=== PATIENT | male | born 1955 | race Caucasian/White ===

== ENCOUNTER 2019-11-21 10:27 | Outpatient (CLI) | payer MEDICARE, SELFPAY ==
[2019-11-21 10:45] LABS: Basophils Absolute Auto 0.04 K/mm3 (0.00-0.10); Basophils Percent Auto 0.6 % (0.0-1.0); Eosinophils Absolute Auto 0.16 K/mm3 (0.02-0.50); Eosinophils Percent Auto 2.4 % (1.0-6.0); Hematocrit 45.1 % (40.0-54.0); Hemoglobin 14.7 g/dL (14.0-18.0); Immature Granulocyte Absolute 0.04 K/mm3 (0.00-0.00); Immature Granulocyte Percent A 0.6 % (0.0-0.0); Lymphocytes Absolute Auto 1.69 K/mm3 (1.10-4.50); Lymphocytes Percent Auto 25.1 % (18.0-42.0); Mean Corpuscular HGB Conc 32.6 g/dL (32.0-36.0); Mean Corpuscular Hemoglobin 31.8 pg (27.0-31.0); Mean Corpuscular Volume 97.6 fL (78.0-102.0); Mean Platelet Volume 9.4 fl (8.7-11.0); Monocytes Absolute Auto 0.39 K/mm3 (0.10-0.90); Monocytes Percent Auto 5.8 % (2.0-11.0); Neutrophils Absolute Auto 4.4 K/mm3 (1.7-7.2); Neutrophils Percent Auto 65.5 % (50.0-70.0); Platelet Count Result 317 K/mm3 (150-420); Red Blood Count 4.62 M/mm3 (4.70-6.10); Red Cell Distribution Width 12.7 % (11.6-14.4); White Blood Count 6.7 K/mm3 (4.8-10.8)
[2019-11-21 11:06] LABS: Hemoglobin A1C 5.5 % (<5.7)
[2019-11-21 11:52] LABS: Alanine Aminotransferase 26 U/L (16-63); Albumin Level 4.4 g/dL (3.4-5.0); Alkaline Phosphatase 157 U/L (46-116); Anion Gap 13.9 mmol/L (7-16); Aspartate Amino Transferase 21 U/L (15-37); Bilirubin,Total 0.4 mg/dL (0.00-1.00); Blood Urea Nitrogen 14 mg/dL (7-18); Calcium 10.8 mg/dL (8.5-10.1); Carbon Dioxide 29 mmol/L (21-32); Chloride 107 mmol/L (98-108); Estimated Glomerular Filt Rate 60; Free T4 Free Thyroxine 0.77 ng/dL (0.76-1.46); Glucose 101 mg/dL (70-99); Osmolality Calculated 300 mOsm/kg (285-295); Potassium 4.9 mmol/L (3.5-5.1); Sodium 145 mmol/L (136-145); Total Protein 7.6 g/dL (6.4-8.2)
[2019-11-25 00:30] LABS: Lithium 0.95 mmol/L (0.60-1.20)
== END 2019-11-21 10:28 | disposition home or self-care (01) ==
DX: F20.0 Paranoid schizophrenia (principal); Z79.899 Other long term (current) drug therapy
CPT/HCPCS: 36415; 80053; 80178; 83036; 84439; 84443; 85025

== ENCOUNTER 2020-08-10 12:51 | Inpatient (IN) | payer MEDICARE, MEDICAID, SELFPAY ==
[2020-08-10] VITALS (18 sets, daily range): BP systolic 113–138; BP diastolic 63–84; PULSE 54–74; RESP 15–20; TEMP 36.6; O2SAT 97–99
--- NOTE | ~2020-08-10 | CT_ITS ---
EXAMINATION: CT brain wo [facility] EXAM DATE: 08/10/2020 13:30 INDICATION: Slurred speech, weakness. TECHNIQUE: Spiral CT of the head was performed without contrast. Axial, coronal and sagittal images were reviewed. The dose-length product (DLP) for this examination was 681.00 mGy-cm. The exposure w as tailored according to patient size, and iterative reconstruction (ASIR) was used as additional dos e reduction technique. There is no prior study for comparison. FINDINGS: There is no acute intraparenchymal hemorrhage. No evidence of intraparenchymal brain mass lesion. No evidence of acute infarction. Please note that initial head CT has limited sensitivity f or small or acute infarctions. There is periventricular and subcortical hypodensity, nonspecific but probably related to small vessel ischemic disease. There is prominence of the sulci and ventricles related to cerebral atrophy. There is intracranial carotid arteriosclerosis. There are no extra-ax ial collections. There is no mass effect or midline shift. The orbits are unremarkable. Soft tissu e is unremarkable. The visualized sinuses and mastoid air cells are well aerated. IMPRESSION: 1. No acute intracranial findings. 2. Chronic age related findings. Reviewed, dictated and finalized at location A. OR QUALITY SUPERVISOR
--- NOTE | ~2020-08-10 | XR_ITS ---
EXAMINATION: XR chest 2V DATE: 08/10/2020 13:34 INDICATION: Slurred speech. Cerebrovascular accident. TECHNIQUE: Frontal and lateral views of the chest were obtained. COMPARISON: None. FINDINGS: There are mild airspace opacities in the lower lung zones. No pleural effusion or pneumotho rax. The heart size is normal. IMPRESSION: 1. Mild airspace opacities in the lower lung zones, consistent with atelectasis versus pneumonia. Reviewed, dictated and finalized at location B. GE HAND
--- NOTE | 2020-08-10 13:05 | ECG_ITS ---
Measurements Intervals [place] Rate: 55 P: 260 MO: 163 QRS: -27 QRSD: 146 T: 3 QT: 475 QTc: 457 Interpretive Statements SINUS BRADYCARDIA INTRAVENTRICULAR CONDUCTION DELAY DELAYED PRECORDIAL R/S TRANSITION MINIMAL Q WAVES- HIGH LATERAL LEADS BORDERLINE T WAVE ABNORMALITY- INFERIOR LEADS BASELINE WANDER- I, II, V2, V4-V5 BORDERLINE ECG Electronically Signed On 08-10-2020 14:51:00 SITE ACQUISITION SPECIALIST by Lobito Alcala D.O.
[2020-08-10 13:27] LABS: Basophils Absolute Auto 0.1 K/mm3 (0.0-0.1); Basophils Percent Auto 0.5 % (0.2-1.2); Eosinophils Absolute Auto 0.3 K/mm3 (0-0.3); Eosinophils Percent Auto 2.8 % (0-4.4); Hematocrit 44.2 % (42.0-52.0); Hemoglobin 14.9 g/dL (14.0-18.0); Immature Granulocyte Absolute 0.05 K/mm3 (0.00-0.031); Immature Granulocyte Percent A 0.5 % (0-0.5); Lymphocytes Absolute Auto 2.05 K/mm3 (0.9-3.2); Lymphocytes Percent Auto 21.9 % (18.3-44.2); Mean Corpuscular HGB Conc 33.7 g/dl (32-36); Mean Corpuscular Volume 95.1 fl (80-100); Mean Platelet Volume 9.6 fl (7.4-10.4); Monocytes Absolute Auto 0.6 K/mm3 (0.1-0.6); Monocytes Percent Auto 6.7 % (2.6-8.5); Neutrophils Absolute Auto 6.3 K/mm3 (1.3-6.7); Neutrophils Percent Auto 67.6 % (45.5-73.1); Platelet Count Result 367 k/mm3 (150-375); Red Blood Count 4.65 M/mm3 (4.6-6.20); Red Cell Distribution Width 12.7 % (11.5-14.5); White Blood Count 9.4 K/mm3 (4.5-10.0)
[2020-08-10 13:35] LABS: Prothrombin Time 13.6 Seconds (11.1-14.7)
[2020-08-10 13:36] LABS: Partial Thromboplastin Time 23.2 SECONDS (22.3-36.8)
[2020-08-10 13:39] LABS: Anion Gap 7 mmol/L (8-16); Blood Urea Nitrogen 18 mg/dL (9-20); Calcium 10.2 mg/dL (8.4-10.2); Carbon Dioxide 26 mmol/L (22-30); Chloride 103 mmol/L (98-107); Estimated CRCL calculation 62 ml/min; Estimated Glomerular Filt Rate > 60; Glucose 103 mg/dL (75-110); Potassium 4.1 mmol/L (3.4-5.0); Sodium 136 mmol/L (137-145)
[2020-08-10 13:50] LABS: Troponin I < 0.012 ng/mL (0.000-0.034)
[2020-08-10 13:51] LABS: Lithium 2.4 mmol/L (0.6-1.2)
[2020-08-10] MEDS: SODIUM CHLORIDE 0.9% IV 1,000 ML 999 ML IV CONT (13:59)
--- NOTE | 2020-08-10 14:02 | ED.WEAKNESS ---
HPI - Weakness General Chief complaint: Weakness Stated complaint: GENERALIZED WEAKNESS, CONFUSION Time Seen by Provider: 08/10/20 13:00 History of Present Illness HPI Narrative: Patient is a 65-year-old male who presents ER with weakness/confusion. Progressive over the last 3 days. Patient has history of schizophrenia and takes Haldol and lithium. No change in dosages. Sister reports patient is totally dependent on their care. They are hopeful to get him in a assisted living type situation in October but due to this recent changes they are concerned there may be something more serious occurring. No focal weakness of an arm or leg but patient has trouble getting himself up out of a chair due to weakness. Additionally patient has been choking when swallowing food and there is concerned that he may have some aspiration. No reports of shortness of breath or fever. No facial droop. Patient is slurring his words more than typical. Patient typically has EPS symptoms from his Haldol. Related Data Home Medications Medication Instructions Recorded Confirmed atenolol 50 mg PO DAILY 08/10/20 benztropine 2 mg PO DAILY 08/10/20 gemfibrozil 600 mg PO BID 08/10/20 haloperidol 5 mg PO DAILY 08/10/20 08/10/20 lithium carbonate 600 mg PO BID 08/10/20 omeprazole 20 mg PO DAILY 08/10/20 Allergies Allergy/AdvReac Type Severity Reaction Status Date / Time No Known Allergies Allergy Verified 08/10/20 16:55 Review of Systems Review of Systems: All systems reviewed & are unremarkable except as noted in HPI and below Constitutional: Constitutional: Denies chills, Denies fever(s) and Denies weakness ENT: Reports dysphagia, Denies nasal congestion and Denies sore throat Cardiovascular: Cardiovascular: Denies chest pain and Denies radiating jaw, neck or arm pain Respiratory: Respiratory: Reports cough, Denies dyspnea and Denies wheezing Neurologic: Reports confusion, Reports dizziness, Denies focal weakness, Denies numbness and Reports weakness PMFSH Past Medical History Medical History (Updated 08/10/20 @ 16:56 by Dimitrios Epps MD) Hyperlipidemia Hypertension Melanie Schizophrenia Surgical History Surgical History (Updated 08/10/20 @ 14:05 by Dimitrios Epps MD) No pertinent past surgical history Family History Family History (Updated 08/10/20 @ 16:52 by Marietta Siu RN) Unknown Unknown family medical history Social History Social History (Updated 08/10/20 @ 14:05 by Dimitrios Epps MD) Smoking status: Former smoker Exam Narrative: Exam Narrative: GENERAL: Well-appearing, well-nourished, and in no acute distress. HEAD: Normocephalic, atraumatic. EYES: PERRL and EOMI. ENT: Poor dentition. Moist mucous membranes. CHEST: Clear to auscultation. No respiratory distress. HEART: Bradycardic and regular. Normal peripheral pulses. ABDOMEN: Soft, nontender, nondistended. EXTREMITIES: Normal range of motion. Trace edema. SKIN: Warm, dry, no rash. NEURO: Slurred speech, cranial nerves II through XII intact, no upper or lower extremity drift. Alert and oriented x3. PSYCH: Normal mood and affect. Course Course Emergency Course: Admit to hospitalist service for hydration and further evaluation of lithium toxicity. Should be able to be managed with conservative care. Vital Signs Vital signs: Vital Signs Temperature 97.8 F 08/10/20 12:59 Pulse Rate 55 L 08/10/20 12:59 Respiratory Rate 18 08/10/20 12:59 Blood Pressure 130/81 08/10/20 12:59 Pulse Oximetry 97 08/10/20 12:59 Temperature 97.8 F 08/10/20 12:59 Pulse Rate 56 L 08/10/20 15:06 Respiratory Rate 15 08/10/20 15:06 Blood Pressure 118/78 08/10/20 15:06 Pulse Oximetry 98 08/10/20 15:06 MDM - Weakness Lab Data Result diagrams: 08/10/20 13:22 08/10/20 13:22 Labs: Lab Results 08/10/20 08/10/20 08/10/20 Range/Units 13:22 13:22 13:22 WBC 9.4 (4.5-10.0) K/mm3 R
--- NOTE | 2020-08-10 16:41 | ADMGEN ---
This patient, Junior Ramires, was admitted to 2 Medical Room 255-01. Patient/family oriented to hospital policies and general routines including ID bracelet, bed and alarms, visiting hours, pain management, procedures, bathroom and other care routines, personal items, smoking policy, room service/diet, and visiting hours. Information on how to activate the Rapid Response Team has been discussed. Patient/Family are encouraged to report perceived risks to care and to ask questions if they do not understand what they are told or what they should do.
[2020-08-10] MEDS: SODIUM CHLORIDE 0.9% IV 1,000 ML 125 ML IV CONT ×2 (17:06→23:54)
[2020-08-10 21:28] LABS: Lithium 1.9 mmol/L (0.6-1.2)
--- NOTE | 2020-08-10 23:42 | PM.IMHP ---
H&P: HPI History of Present Illness Date/Time: 08/10/20 23:42 Chief Complaint: weakness Narrative: Junior Ramires is a 64 year old male WHO HAS A HISTORY OF BIPOLAR DISORDER AND HAS BEEN ON LITHIUM SINCE HE WAS ON LITHIUM FOr many years. The patient stated that he has not intentionally tried to take any extra doses of lithium. He stated over the years he may have taken 1 or 2 extra not realized it. But he does not recall taking more than normal. The patient came to the emergency room today with complaints of weakness and confusion. Been getting progressively worse over the last 3 days. He has not had any changes in his dosage of medication when I talked to him he was stuttering but he was able to answer questions without difficulty. The patient tells me that he lives with family members. He has no focal weakness. No facial droop. The patient does have EPS symptoms from his Haldol. The patient is very weak and his heart rates in the 40s. Patient's lithium level initially was 2.4 and poison control had been notified they requested that we do a repeat lithium level. It was then 1.9. The patient is still needing insistence rolling over in the bed. The patient stated he is usually up ambulating without difficulty and is able to care for himself normally. Head CT was read as no acute intracranial findings and chronic age-related findings. Chest x-ray was read as mild airspace opacities in the lower lung zones consistent with atelectasis versus pneumonia. The patient was started on IV fluids. And placed on medical surgical with tele he is being admitted to observation on the date of service of 08/10/2020. Review of Systems Review of Systems: All systems reviewed & are unremarkable except as noted in HPI and below Constitutional: Constitutional: Reports as per HPI and Reports no additional constitutional complaints Eyes: Eyes: Reports as per HPI and Reports no additional eye complaints ENT: Reports system reviewed and no additional complaints, except as documented and Reports Normal hearing present Cardiovascular: Cardiovascular: Reports no additional cardiovascular complaints Respiratory: Respiratory: Reports no additional respiratory complaints and Reports no additional respiratory complaints Gastrointestinal: Gastrointestinal: Reports as per HPI and Reports no additional gastrointestinal complaints Musculoskeletal: Musculoskeletal: Reports no additional musculoskeletal complaints Integumentary/Breasts: Skin/Breast: Reports system reviewed and no additional complaints, except as docu and Reports as per HPI Neurologic: Reports system reviewed and no additional complaints, except as documented, Reports as per HPI and Reports Normal hearing present Psychiatric: Psychiatric: Reports no additional psychiatric complaints and Reports as per HPI Endocrine: Endocrine: Reports no additional endocrine complaints Hematologic/Lymphatic: Hematologic/Lymphatic: Reports no additional hematologic/lymphatic complaints Allergic/Immunologic: Allergic/Immunologic: Reports no additional allergic/immunologic complaints [facility] Past Medical History Medical History (Updated 08/11/20 @ 00:13 by Denise Castellano NP) Combined pyramidal-extrapyramidal syndrome Hyperlipidemia Hypertension Melanie Schizophrenia Surgical History Surgical History (Updated 08/10/20 @ 23:50 by Denise Castellano NP) History of appendectomy Family History Family History (Updated 08/10/20 @ 23:54 by Denise Castellano NP) Father due to motor vehicle traffic accident Mother due to natural causes Social History Social History (Updated 08/11/20 @ 00:09 by Denise Castellano NP) Social History: the patient is single and has never been . the patient stated that he used to smoke in 1968 for a brief period of time then quit. He stated that he had a significant other for a long period time but no longer has her. He does occasionally have it m
[2020-08-11] VITALS (9 sets, daily range): BP systolic 120–126; BP diastolic 66–72; PULSE 44–67; RESP 16–20; TEMP 36.3–36.9; O2SAT 97–99
[2020-08-11 05:42] LABS: Basophils Absolute Auto 0.1 K/mm3 (0.0-0.1); Basophils Percent Auto 0.6 % (0.2-1.2); Eosinophils Absolute Auto 0.2 K/mm3 (0-0.3); Eosinophils Percent Auto 2.8 % (0-4.4); Hemoglobin 13.8 g/dL (14.0-18.0); Immature Granulocyte Absolute 0.04 K/mm3 (0.00-0.031); Immature Granulocyte Percent A 0.5 % (0-0.5); Lymphocytes Absolute Auto 1.92 K/mm3 (0.9-3.2); Lymphocytes Percent Auto 24.6 % (18.3-44.2); Mean Corpuscular HGB Conc 33.7 g/dl (32-36); Mean Corpuscular Hemoglobin 32.2 pg (26-34); Mean Corpuscular Volume 95.6 fl (80-100); Mean Platelet Volume 9.5 fl (7.4-10.4); Monocytes Absolute Auto 0.5 K/mm3 (0.1-0.6); Monocytes Percent Auto 5.9 % (2.6-8.5); Neutrophils Absolute Auto 5.1 K/mm3 (1.3-6.7); Neutrophils Percent Auto 65.6 % (45.5-73.1); Platelet Count Result 335 k/mm3 (150-375); Red Blood Count 4.29 M/mm3 (4.6-6.20); Red Cell Distribution Width 12.8 % (11.5-14.5); White Blood Count 7.8 K/mm3 (4.5-10.0)
[2020-08-11 06:00] LABS: Alanine Aminotransferase 23 U/L (4-50); Albumin Level 3.9 g/dL (3.5-5.1); Alkaline Phosphatase 145 U/L (38-126); Anion Gap 4 mmol/L (8-16); Aspartate Amino Transferase 23 U/L (17-59); Bilirubin,Total 0.5 mg/dL (0.2-1.3); Blood Urea Nitrogen 14 mg/dL (9-20); Calcium 10.1 mg/dL (8.4-10.2); Carbon Dioxide 25 mmol/L (22-30); Chloride 110 mmol/L (98-107); Estimated CRCL calculation 73 ml/min; Estimated Glomerular Filt Rate > 60; Glucose 101 mg/dL (75-110); Magnesium 2.3 mg/dL (1.6-2.3); Potassium 3.7 mmol/L (3.4-5.0); Sodium 139 mmol/L (137-145)
[2020-08-11 06:37] LABS: Lithium 1.6 mmol/L (0.6-1.2)
[2020-08-11] MEDS: SODIUM CHLORIDE 0.9% IV 1,000 ML 125 ML IV CONT ×3 (08:02→23:41)
--- NOTE | 2020-08-11 10:43 | PM.IMPN ---
Progress Note: A&P Assessment and Plan (1) [place] toxicity: Code(s): T56.891A - Toxic effect of other metals, accidental (unintentional), initial encounter Status: Acute Assessment and Plan: On arrival, lithium level was elevated at 2.4. His medications are sorted by his sister, however she notes it is possible that he could have taken extra doses of his medication. The patient reportedly told the previous provider that he has taken extra doses of his medication unknowingly, however he did not state this to me. No GI symptoms on presentation. [place] level has improved to 1.6. [place] is on hold I will plan to contact his psychiatrist, Grecthen Arambula, GREENHOUSE ASSISTANT to discuss findings. He will need outpatient follow up and likely will require medication adjustment. Continue IV fluids (2) Generalized weakness: Code(s): R53.1 - Weakness Status: Acute Assessment and Plan: Patient and his sister both report patient has become increasingly weak and having difficult getting out of bed. Sister reports they are pursuing assisted living placement. 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 He is a fall risk. Appreciate PT/OT evaluation. Care coordination following Plan to speak with psychiatrist as above to assess psychiatric medications and their role in patients symptoms. Check B12, folate, TSH Fall precautions in place Monitor clinically (3) Dysphagia: Code(s): R13.10 - Dysphagia, unspecified Status: Acute Assessment and Plan: Noted by ER staff to be choking on food. His sister, who is actually a speech pathologist, knows that he has had increased drooling and dysphagia. Continue current NPO diet Bedside swallow study has been ordered. Appreciate ST evaluation (4) Bradycardia: Code(s): R00.1 - Bradycardia, unspecified Status: Acute Assessment and Plan: Telemetry has been reviewed which shows bradycardia in the 45-60 range with occasional pauses. This may be related to lithium toxicity. He is also on atenolol, however this has been held. Monitor on telemetry Continue to hold atenolol Consider cardiology consultation if no improvement (5) Hypertension: Code(s): I10 - Essential (primary) hypertension Status: Chronic Assessment and Plan: Blood pressure evaluated and is stable at 113/70. Atenolol on hold as above Monitor BP daily Subjective Date/time seen: 08/11/20 10:43 Interval history: Date of service: 08/11/20 Junior Ramires is a 64 year old male with a history of schizophrenia on several antipsychotic medications with known history of extrapyramidal syndrome, HLD, and HTN who is seen in follow up for increased, progressive weakness and lithium toxicity. He is feeling well today. He has no complaints at this time. He is not really able to tell me why he came into the hospital and is not able to provide much information. He does answer all my questions appropriately but exhibits confusion. He denies confusion, headache, nausea, vomiting, fever, chills, dizziness, or lightheadedness. He does note that he has been feeling weak lately. He reports feeling hungry. He is unable to tell me if he could have potentially taken any extra doses of his medication. He reports he has not missed any doses of medication. He notes speech changes, saying that he will occasionally have stuttering, but then later states that that has been present for many years. I spoke with his sister via phone who states that his speech slowness and stuttering has been present for some time. She also states that he has slow movements, muscle rigidity and stiffness, and shuffling gait. Recently, he began exhibiting more drooling, dysphagia, and decreased appetite. He had become increasingly weak and was not able to get out of bed. She stat
[2020-08-11 13:20] LABS: Folic Acid 5.5 ng/mL (2.76->20)
--- NOTE | 2020-08-11 18:16 | PC.NURSE ---
On 08/11/20, the RN, Geneva Tabares, provided care and completed [facility] documentation on this patient. I have reviewed the RN's documentation and agree with the findings.
[2020-08-11] MEDS: HALOPERIDOL 5 MG TABLET PO (21:19)
[2020-08-12] VITALS (9 sets, daily range): BP systolic 135–147; BP diastolic 70–74; PULSE 59–90; RESP 18; TEMP 36.1–36.9; O2SAT 99–100
[2020-08-12 05:36] LABS: Hematocrit 39.8 % (42.0-52.0); Mean Corpuscular HGB Conc 32.7 g/dl (32-36); Mean Corpuscular Hemoglobin 31.2 pg (26-34); Mean Corpuscular Volume 95.4 fl (80-100); Mean Platelet Volume 9.3 fl (7.4-10.4); Platelet Count Result 329 k/mm3 (150-375); Red Blood Count 4.17 M/mm3 (4.6-6.20); Red Cell Distribution Width 12.7 % (11.5-14.5); White Blood Count 8.4 K/mm3 (4.5-10.0)
[2020-08-12 05:51] LABS: Alanine Aminotransferase 21 U/L (4-50); Albumin Level 3.8 g/dL (3.5-5.1); Alkaline Phosphatase 132 U/L (38-126); Anion Gap 4 mmol/L (8-16); Aspartate Amino Transferase 26 U/L (17-59); Bilirubin,Total 0.3 mg/dL (0.2-1.3); Blood Urea Nitrogen 9 mg/dL (9-20); Calcium 10.1 mg/dL (8.4-10.2); Carbon Dioxide 26 mmol/L (22-30); Chloride 113 mmol/L (98-107); Estimated CRCL calculation 81 ml/min; Estimated Glomerular Filt Rate > 60; Glucose 109 mg/dL (75-110); Potassium 3.7 mmol/L (3.4-5.0); Sodium 143 mmol/L (137-145)
[2020-08-12] MEDS: HALOPERIDOL 5 MG TABLET PO (08:05)
[2020-08-12] MEDS: PANTOPRAZOLE 40 MG TABLET PO (08:05)
[2020-08-12] MEDS: BENZTROPINE MESYLATE 1 MG TABLET 2 MG PO (08:05)
--- NOTE | 2020-08-12 15:16 | PM.IMPN ---
Progress Note: A&P Assessment and Plan (1) [place] toxicity: Code(s): T56.891A - Toxic effect of other metals, accidental (unintentional), initial encounter Status: Acute Assessment and Plan: On arrival, lithium level was elevated at 2.4. His medications are sorted by his sister, however she notes it is possible that he could have taken extra doses of his medication. The patient reportedly told the previous provider that he has taken extra doses of his medication unknowingly, however he did not state this to me. No GI symptoms on presentation. [place] level has improved to normal limits at 1.0. [place] is on hold. I spoke with his psychiatrist, Gretchen Arambula, TEJAL via phone on 08/11. She recommends holding lithium until outpatient follow up. He will schedule a virtual visit upon discharge. He will need closer monitoring and assistance with managing his medication to ensure he is not taking extra medication IV fluids discontinued (2) Generalized weakness: Code(s): R53.1 - Weakness Status: Acute Assessment and Plan: Patient and his sister both report patient has become increasingly weak and having difficult getting out of bed. Sister reports they are pursuing assisted living placement. 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 He is a fall risk. B12, folate, and TSH within normal limits. Appreciate PT/OT evaluation. Care coordination following; planning for home health upon discharge Fall precautions in place Monitor clinically (3) Dysphagia: Code(s): R13.10 - Dysphagia, unspecified Status: Acute Assessment and Plan: Noted by ER staff to be choking on food. His sister, who is actually a speech pathologist, noted that he has had increased drooling and dysphagia. Bedside swallow study performed 08/11, recommended minced and moist diet with thin liquids Aspiration precautions in place Continue speech therapy exercises to promote laryngeal elevation (4) Bradycardia: Code(s): R00.1 - Bradycardia, unspecified Status: Acute Assessment and Plan: Telemetry has been reviewed which showed bradycardia in the 45-60 range with occasional pauses. This may be related to lithium toxicity. He is also on atenolol, however this has been held. Improved today with heart rate typically in the 70s, still having occasional pauses, however less frequent. Monitor on telemetry Continue to hold atenolol. This will be likely discontinued upon discharge. I am unsure why he is on atenolol as he has no medical history indicating need for rate controlling medication, may be for HTN, however BP has been well controlled. Consider cardiology consultation if no improvement (5) Hypertension: Code(s): I10 - Essential (primary) hypertension Status: Chronic Assessment and Plan: Blood pressure evaluated and has been generally very well controlled. Last BP 147/74. Atenolol on hold as above Monitor BP daily (6) Combined pyramidal-extrapyramidal syndrome: Code(s): G25.89 - Other specified extrapyramidal and movement disorders Status: Inactive Assessment and Plan: Per patient's psychiatrist, this is thought to be due to side effects from his antipsychotic medications. He was recently started on Ingrezza for his tardive dyskinesia symptoms, however he did not tolerate this medication very well and was discontinued about 2 weeks ago. Per his psychiatrist, she was concerned for true Parkinson's disease in light of his Parkinsonian symptoms, rather than as a medication side effect. Sister reports rigidity and shuffling gait. No resting tremor noted. He does have a bit of a flat affect. Neurology consultation was requested by his psychiatrist to assess for Parkinson's disease. Appreciate neurology input Will continue benztropine an
--- NOTE | 2020-08-12 15:34 | WPDNEURCNPN ---
Assessment and Plan Assessment and plan (1) Generalized weakness: Code(s): R53.1 - Weakness Status: Acute (2) Hyperlipidemia: Code(s): E78.5 - Hyperlipidemia, unspecified Status: Acute (3) Hypertension: Code(s): I10 - Essential (primary) hypertension Status: Chronic (4) [place] toxicity: Code(s): T56.891A - Toxic effect of other metals, accidental (unintentional), initial encounter Status: Acute Additional Plan ongoing history of bipolar disease admitted for the complaints of generalized weakness fairly normal routine lab except elevated lithium level at this stage is neurological examination is grossly nonfocal at this stage no further neurological intervention is necessary he can return to his place of residence Consult date: 08/12/20 Time Seen: 12:00 HPI: Junior Ramires is a 64 year old male admitted to the hospital for complaints of generalized weakness in addition to the history of underlying bipolar disorder for which he has been on lithium. Reportedly came to the emergency room with complaints of generalized weakness with increasing confusion over the last 72 hours and also without any focal weakness his initial lithium levels were documented as 2.4 for which the poison Control Center has suggested to repeat the lithium level. His CT scan in the emergency room was negative for the bleed, chest x-ray was compatible with possible atelectasis versus pneumonia he was started on the intravenous fluids and admitted for further care. Her lab revealed WBC 9.4 hemoglobin 14.9 platelet count 367 INR of 1.0, lytes normal and lithium level of 2.4 which are gradually coming down to 1.0 on 08/12, [place] above initial CT scan of the head negative he has remained afebrile with temp of 36.4? pulse of 72 and respiration 18 pulse ox 100 on room air and blood pressure now of 142/70 Review of Systems Review of Systems: All systems reviewed & are unremarkable except as noted in HPI and below PMFSH Past Medical History Medical History Combined pyramidal-extrapyramidal syndrome Hyperlipidemia Hypertension Melanie Schizophrenia Surgical History Surgical History History of appendectomy Family History Family History Father due to motor vehicle traffic accident Mother due to natural causes Social History Social History Social History: the patient is single and has never been . the patient stated that he used to smoke in 1968 for a brief period of time then quit. He stated that he had a significant other for a long period time but no longer has her. He does occasionally have it makes drink. He said that he lives with family and he has no children. He is a full code and does not have a durable power prosecuting attorney for healthcare. the patient stated that he use marijuana in the 60s. Smoking status: Former smoker Alcohol intake: never Substance use: never Substance use type: does not use Gender identity (if verbalized by the patient): Male Sexual Orientation (if Verbalized by the Patient): Straight or Heterosexual Spiritual care concerns: No Meds Home Medications and Allergies Home Medications Medication Instructions Recorded Confirmed Type atenolol 50 mg PO DAILY 08/10/20 08/10/20 History benztropine 2 mg PO DAILY 08/10/20 08/10/20 History gemfibrozil 600 mg PO BID 08/10/20 08/10/20 History haloperidol 5 mg PO DAILY 08/10/20 08/10/20 History lithium carbonate 600 mg PO BID 08/10/20 08/10/20 History omeprazole 20 mg PO DAILY 08/10/20 08/10/20 History Allergies Allergy/AdvReac Type Severity Reaction Status Date / Time No Known Allergies Allergy Verified 08/10/20 16:55 Vital Signs Vital Signs - 24 hr 08/11/20 16:00 08/11/20 20:00 08/11/20 21:
--- NOTE | 2020-08-12 19:00 | ECG_ITS ---
Measurements Intervals [place] Rate: 71 P: 91 MO: 201 QRS: -16 QRSD: 133 T: -12 QT: 364 QTc: 397 Interpretive Statements SINUS RHYTHM INTRAVENTRICULAR CONDUCTION DELAY VOLTAGE CRITERIA FOR LVH MINIMAL Q WAVES- HIGH LATERAL LEADS BORDERLINE T WAVE ABNORMALITY- ANT/INF LEADS BASELINE ARTIFACT- I, II, AVR, V2-V3 BORDERLINE ECG Electronically Signed On 08-13-2020 7:13:32 DANDY TENDER by Lobito Alcala D.O.
[2020-08-13] VITALS: PULSE 80
[2020-08-13 04:00] VITALS: PULSE 84
[2020-08-13 05:37] LABS: Anion Gap 3 mmol/L (8-16); Blood Urea Nitrogen 7 mg/dL (9-20); Calcium 9.7 mg/dL (8.4-10.2); Carbon Dioxide 27 mmol/L (22-30); Chloride 111 mmol/L (98-107); Estimated CRCL calculation 73 ml/min; Estimated Glomerular Filt Rate > 60; Glucose 105 mg/dL (75-110); Potassium 3.3 mmol/L (3.4-5.0); Sodium 141 mmol/L (137-145)
[2020-08-13 06:00] VITALS: BP 153/83; PULSE 72; RESP 16; TEMP 36.6; O2SAT 97
[2020-08-13 08:00] VITALS: PULSE 72
[2020-08-13] MEDS: PANTOPRAZOLE 40 MG TABLET PO (09:31)
[2020-08-13] MEDS: amLODIPine BESYLATE 5 MG TABLET PO (09:31)
[2020-08-13] MEDS: HALOPERIDOL 5 MG TABLET PO (09:31)
[2020-08-13] MEDS: BENZTROPINE MESYLATE 1 MG TABLET 2 MG PO (09:31)
[2020-08-13 11:45] VITALS: BP 151/76
[2020-08-13 12:00] VITALS: PULSE 88
--- NOTE | 2020-08-13 12:01 | PM.DS ---
DS: Admitting Diagnosis Admitting Diagnosis Admitting Diagnosis: generalized weakness DS: Discharge Diagnosis Discharge Diagnosis (1) [place] toxicity: Code(s): T56.891A - Toxic effect of other metals, accidental (unintentional), initial encounter Status: Acute Assessment and Plan: On arrival, lithium level was elevated at 2.4. His medications are sorted by his sister, however she notes it is possible that he could have taken extra doses of his medication. The patient reportedly told the previous provider that he has taken extra doses of his medication unknowingly, however he did not state this to me. No GI symptoms on presentation. [place] level has improved to normal limits at 1.0. I spoke with his psychiatrist, Gretchen Arambula NP via phone on 08/11. She recommends holding lithium until outpatient follow up. He will schedule a virtual visit upon discharge. his lithium was held. I had a discussion with his sister who is his primary sports cartoonist via phone about closer monitoring with his medications to ensure that he is taking his medications appropriately. (2) Generalized weakness: Code(s): R53.1 - Weakness Status: Acute Assessment and Plan: Patient and his sister both report patient has become increasingly weak and having difficult getting out of bed. Sister reports they are pursuing assisted living placement. 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 He is a fall risk. B12, folate, and TSH within normal limits. he was evaluated by PT /OT and will continue therapy with home health until family can determine appropriate assisted living placement for him. Discussed fall precautions. (3) Dysphagia: Code(s): R13.10 - Dysphagia, unspecified Status: Acute Assessment and Plan: Noted by ER staff to be choking on food. His sister, who is actually a speech pathologist, noted that he has had increased drooling and dysphagia at home. Bedside swallow study performed and recommended minced and moist diet with thin liquids. Recommended that he continue with speech therapy exercises to promote laryngeal elevation. (4) Bradycardia: Code(s): R00.1 - Bradycardia, unspecified Status: Acute Assessment and Plan: Telemetry reviewed which showed bradycardia in the 45-60 range with occasional pauses on arrival. This may be related to lithium toxicity, however suspect this is more likely related to his atenolol. With holding atenolol, his heart rate improved to the 70s. He did still have occasional pauses 1-2 seconds. His atenolol was discontinued. He will need to follow-up with his PCP in 1 week for further evaluation. He will benefit from outpatient sleep study to rule out MAURO as a cause and I encouraged his sister to discuss this with his PCP. (5) Hypertension: Code(s): I10 - Essential (primary) hypertension Status: Chronic Assessment and Plan: Blood pressure evaluated and remained well controlled. he was transition to amlodipine 5 mg daily for BP control as his atenolol was discontinued. I recommended that he monitor his BP 3 4 times weekly and bring a list to his PCP for further evaluation. 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 He was recently started on Ingrezza for his tardive dyskinesia symptoms, however he did not tolerate this medication very well and was discontinued about 2 weeks ago. Per his psychiatrist, she was concerned for true Parkinson's disease in light of his Parkinsonian symptoms, rather than as a medication side effect. Sister reports rigidity and shuffling gait. No restin
[2020-08-13] MEDS: POTASSIUM CHLORIDE 20 MEQ PACKET (FOR LIQUID) PO (12:19)
== END 2020-08-13 13:35 | disposition home health service (06) | DRG 918 ==
LOC: ANHED 13:21 → ANH2MED 15:32
PROVIDERS: Family Medicine; Nurse Practitioner; Physician Assistant; Admitting Provider Internal Medicine; Emergency Provider Emergency Medicine; PCP Physician Assistant; Visit Provider Internal Medicine
DX: T56.891A Toxic effect of other metals, accidental (unintentional), initial encounter (principal); G25.89 Other specified extrapyramidal and movement disorders; R53.1 Weakness; R13.10 Dysphagia, unspecified; R00.1 Bradycardia, unspecified; I10 Essential (primary) hypertension; F31.9 Bipolar disorder, unspecified; F20.9 Schizophrenia, unspecified; E78.5 Hyperlipidemia, unspecified; Z79.899 Other long term (current) drug therapy; Z87.891 Personal history of nicotine dependence
CPT/HCPCS: 36415; 70450; 71046; 80048; 80053; 80178; 82607; 82746; 83735; 84443; 84484; 85025; 85027; 85610; 85730; 92526; 92610; 93005; 96360; 96361; 97110; 97116; 97161; 97165; 97530; 97535; 99285; A9270; G0378; J7030

== ENCOUNTER 2024-10-28 08:57 | Outpatient (CLI) | payer MEDICARE, MEDICAID, SELFPAY ==
--- NOTE | ~2024-10-28 | NM_ITS ---
EXAMINATION: NM parathyroid imaging w spect DATE: 10/28/2024 14:21 INDICATION: Disorder of parathyroid gland TECHNIQUE: 21 mCi Tc99m sestamibi (Cardiolite) was administered by intravenous route. Anterior images of the neck were obtained at 10 minutes and 3 hours. COMPARISON: None. FINDINGS/IMPRESSION: There is no focus of persistent activity in the area of the thyroid or mediastinum to suggest parathy roid adenoma. Reviewed, dictated and finalized at location A.
--- OUTSIDE RECORDS SUMMARY | 2024-10-28 09:41 | XMS_ITS | Data Portability ---
Author Organization [facility] [address] [place] [address] Care Team Providers Care Goodyear Welter Name Role Phone ZOLTAN HOUSTON Primary Care Provider Assessment Encounter Date Assessment Date Assessment LastModified by Organization Details LastModified Time 04/01/2024 04/01/2024 hypertension controlled dyslipidemia check labs GERD using conservative measures and doing fine schizophrenia follow up with Psychiatry get old records see me in 4 months [email or web address] Not available 04/21/2024 14:59:37 07/29/2024 07/29/2024 he has had a fall or 2 without injury I will get him set up with physical therapy evaluation. There are seeing for some resources to help him get in with the paratransit to help with getting the patient to office I think that is fine. I want to see him in 3 months CBC CMP lipid T3-T4 TSH prior to visit. Please obtain last colon screening test [email or web address] Not available 07/29/2024 12:12:29 Plan of Treatment Reminders Order Date Submit Date Provider Last Modified By Organization Details Last Modified Time Details Appointments ANY 15 2024 11:00A Omid Yan MD Not available Not available Not available Lab noninvasi ve colorecta l cancer DNA + occult blood screening , QL, stool 2024 025 [email or web address] (Cologuard Orders Only), [address], [address], [place], [address], 10/01/2024 22:08:46 CBC w/ auto diff 2024 025 [email or web address], [address], [place], [address], 08/27/2024 10:32:48 CMP, serum or plasma 2024 025 [facility], [address], [place], [address], 08/27/2024 10:32:07 lipid panel, serum 2024 025 [place] [facility], [address], [place], [address], 08/27/2024 10:33:00 TSH, serum or plasma 2024 025 [facility], [address], [place], [address], 08/27/2024 10:32:18 T3, free, serum or plasma 2024 025 [facility], [address], [place], [address], 08/27/2024 10:32:26 T4, free, serum 2024 025 [facility], [address], [place], [address], 08/27/2024 10:32:31 PSA, total, serum or plasma 2023 024 [email or web address] [facility], [address] [place] [address] [place], [facility] [address], [place], [address], 04/24/2024 11:24:23 lipid panel, serum 2023 024 [facility] [address], [facility] [address], [place], [address], 04/15/2024 09:40:22 CMP, serum or plasma 2023 024 [email or web address] [facility], [address], [address], [place], [address], 04/24/2024 11:24:23 CBC w/ auto diff 2023 024 [email or web address] [facility], [address], [address], [place], [address], 04/24/2024 11:24:23 PSA, serum or plasma 2020 021 MAYA [facility], [address], [address], [place], [address], 10/08/2020 13:10:34 CMP, serum or plasma 2020 021 MAYA [facility], [address] [facility] [address], [address], [place], [address], 10/08/2020 13:10:32 urinalysi s, complete 2020 021 MAYA [facility], [address] [facility] [address], [place], [address], 10/08/2020 13:10:33 HbA1c (hemoglob in A1c), blood 2020 021 MAYA [facility], [address] [facility] [address], [address], [place], [address], 10/08/2020 13:10:35 Referral physical therapist referral 2024 025 [facility], [address] [place], [address], 08/09/2024 16:30:25 Procedures None recorded. Surgeries None recorded. Imaging None recorded. Medication Orders amlodipin e 5 mg tablet 2020 021 INTERFACE [id number], [address], [place], [place], [id number], 08/24/2020 11:51:44 Patient TargetsNo targets recorded. Patient Instructions Encounter Date Encounter Id Patient Instructions Last Modified By Organization Details Last Modified Time 08/24/2020 [id number] sleep apnea: car e instructions jnanney Not available 08/24/2020 11:51:37 schizophrenia: care instructions jnanney Not available 08/24/2020 11:51:36 learning about high blood pressure jnanney Not available 08/24/2020 11:51:36 high cholesterol : care instructions jnanney Not available 08/24/2020 11:51:36 10/02/2020 [id number] frequent urination: care instructions jnanney Not available 10/02/2020 15:26:33 Come in for PSA and UA/UCX jnanney Not available 10/02/2020 15:26:32 10/07/2020 [id number] frequent urination: care instructions jnanney Not available 10/07/2020 10:56:41 Reason for Referral Physical Therapist Referral for Fall Referring Physician: Dar Yan, Internal Medicine, Encounter Date: 07/29/2024 Results Created Date Observation Date Name Description Value Unit Range Abnormal Flag Note LastModifiedBy Organization Detail LastModifiedTime 10/13/1910/12/2024 COLOG UARD cologuard result reportable Sample Could Not Be Proces sed n/a An empty colle ction kit was recei glory in the labor atory . The patie nt will be conta cted to initi ate a new sampl e colle ction . Not Available [facility] (Cologuard Orders Only) [address], [place], [address], 10/12/2024 02:36:49 10/08/1910/08/2020 CMP, serum or plasm a glucose 100 mg/dL 65-99 above high normal Not Available [facility] ([facility]) [address] [facility], [place], [address], 10/08/2020 13:10:32 10/08/19 21 10/08/2020 CMP, serum or plasm a BUN 17 mg/dL 8-27 Not Available [facility] ([facility]) [address] [place], [address], 10/08/2020 13:10:32 10/08/19 21 10/08/2020 CMP, serum or plasm a creatinine 0.89 mg/dL 0.76-1 .27 Not Available [facility] ([facility]) [address] [place], [address], 10/08/2020 13:10:32 10/08/19 21 10/08/2020 CMP, serum or plasm a eGFR if nonafricn AM 90 mL/mi n/1.7 3 >59 Not Available [facility] ([facility]) [address] [place], [address], 10/08/2020 13:10:32 10/08/19 21 10/08/2020 CMP, serum or plasm a eGFR if africn AM 104 mL/mi n/1.7 3 >59 Not Available [facility] ([facility]) [address] [place], [address], 10/08/2020 13:10:32 10/08/19 21 10/08/2020 CMP, serum or plasm a BUN/creatini ne ratio 19 10-24 Not Available [facility] ([facility]) [address] [place], [address], 10/08/2020 13:10:32 10/08/19 21 10/08/2020 CMP, serum or plasm a sodium 142 mmol/ L 134-14 4 Not Available [facility] ([facility]) [address] [place], [address], 10/08/2020 13:10:32 10/08/19 21 10/08/2020 CMP, serum or plasm a potassium 4.1 mmol/ L 3.5-5. 2 Not Available [facility] ([facility]) [address] [place], [address], 10/08/2020 13:10:32 10/08/19 21 10/08/2020 CMP, serum or plasm a chloride 103 mmol/ L 96-106 Not Available [facility] ([facility]) [address] [place], [address], 10/08/2020 13:10:32 10/08/19 21 10/08/2020 CMP, serum or plasm a carbon dioxide, total 24 mmol/ L 20-29 Not Available [facility] ([facility]) [address] [facility], [place], [address], 10/08/2020 13:10:32 10/08/19 21 10/08/2020 CMP, serum or plasm a calcium 10.6 mg/dL 8.6-10 .2 above high normal Not Available [facility] ([facility]) [address] [place], [address], 10/08/2020 13:10:32 10/08/19 21 10/08/2020 CMP, serum or plasm a protein, total 7.3 g/dL 6.0-8. 5 Not Available [facility] ([facility]) [address] [place], [address], 10/08/2020 13:10:32 10/08/19 21 10/08/2020 CMP, serum or plasm a albumin 4.8 g/dL 3.8-4. 8 Not Available [facility] ([facility]) [address] [place], [address], 10/08/2020 13:10:32 10/08/19 21 10/08/2020 CMP, serum or plasm a globulin, total 2.5 g/dL 1.5-4. 5 Not Available [facility] ([facility]) [address] [place], [address], 10/08/2020 13:10:32 10/08/19 21 10/08/2020 CMP, serum or plasm a A/G ratio 1.9 1.2-2. 2 Not Available [facility] ([facility]) [address] [place], [address], 10/08/2020 13:10:32 10/08/19 21 10/08/2020 CMP, serum or plasm a bilirubin, total 0.3 mg/dL 0.0-1. 2 Not Available [facility] ([facility]) [address] [place], [address], 10/08/2020 13:10:32 10/08/19 21 10/08/2020 CMP, serum or plasm a alkaline phosphatase 128 IU/L 39-117 above high normal Not Available [facility] ([facility]) [address] [place], [address], 10/08/2020 13:10:32 10/08/19 21 10/08/2020 CMP, serum or plasm a AST (SGOT) 37 IU/L 0-40 Not Available [facility] ([facility]) [address] [place], [address], 10/08/2020 13:10:32 10/08/19 21 10/08/2020 CMP, serum or plasm a ALT (SGPT) 42 IU/L 0-44 Not Available [facility] ([facility]) [address] [place], [address], 10/08/2020 13:10:32 10/08/1910/08/2020 urina lysis , compl ete specific gravity 1.010 1.005- 1.030 Not Available [facility] ([facility]) [address] [place], [address], 10/08/2020 13:10:33 10/08/19 21 10/08/2020 urina lysis , compl ete pH 6.0 5.0-7. 5 Not Available [facility] ([facility]) [address] [place], [address], 10/08/2020 13:10:33 10/08/19 21 10/08/2020 urina lysis , compl ete urine-color Yellow yellow Not Available [facility] ([facility]) [address] [facility], [place], [address], 10/08/2020 13:10:33 10/08/19 21 10/08/2020 urina lysis , compl ete appearance Clear clear Not Available [facility] ([facility]) [address] [facility], [place], [address], 10/08/2020 13:10:33 10/08/19 21 10/08/2020 urina lysis , compl ete WBC esterase Negati ve negati ve Not Available [facility] ([facility]) [address] [place], [address], 10/08/2020 13:10:33 10/08/19 21 10/08/2020 urina lysis , compl ete protein Negati ve negati ve/tra ce Not Available [facility] ([facility]) [address] [facility], [place], [address], 10/08/2020 13:10:33 10/08/19 21 10/08/2020 urina lysis , compl ete glucose Negati ve negati ve Not Available [facility] ([facility]) [address] [place], [address], 10/08/2020 13:10:33 10/08/19 21 10/08/2020 urina lysis , compl ete ketones Negati ve negati ve Not Available [facility] ([facility]) [address] [place], [address], 10/08/2020 13:10:33 10/08/19 21 10/08/2020 urina lysis , compl ete occult blood Negati ve negati ve Not Available [facility] ([facility]) [address] [facility], [place], [address], 10/08/2020 13:10:33 10/08/19 21 10/08/2020 urina lysis , compl ete bilirubin Negati ve negati ve Not Available [facility] ([facility]) [address] [facility], [place], [address], 10/08/2020 13:10:33 10/08/19 21 10/08/2020 urina lysis , compl ete urobilinogen ,semi-qn 0.2 mg/dL 0.2-1. 0 Not Available [facility] ([facility]) [address] [facility], [place], [address], 10/08/2020 13:10:33 10/08/19 21 10/08/2020 urina lysis , compl ete nitrite, urine Negati ve negati ve Not Available [facility] ([facility]) [address] [facility], [place], [address], 10/08/2020 13:10:33 10/08/19 21 10/08/2020 urina lysis , compl ete microscopic examination Commen t Micro scopi c follo ws if indic ated. Not Available [facility] ([facility]) [address] [facility], [place], [address], 10/08/2020 13:10:33 10/08/19 21 10/08/2020 urina lysis , compl ete microscopic examination See below: Micro scopi c was indic ated and was perfo rmed. Not Available [facility] ([facility]) [address] [facility], [place], [address], 10/08/2020 13:10:33 10/08/19 21 10/08/2020 urina lysis , compl ete WBC 0-5 /hpf 0 - 5 Not Available [facility] ([facility]) [address] [facility], [place], [address], 10/08/2020 13:10:33 10/08/19 21 10/08/2020 urina lysis , compl ete RBC 0-2 /hpf 0 - 2 Not Available [facility] ([facility]) [address], [place], [address], 10/08/2020 13:10:33 10/08/19 21 10/08/2020 urina lysis , compl ete epithelial cells (non renal) None seen /hpf 0 - 10 Not Available [facility] ([facility]) [address], [place], [address], 10/08/2020 13:10:33 10/08/19 21 10/08/2020 urina lysis , compl ete epithelial cells (renal) FIELD PRODUCER Not Available [facility] ([facility]) [address] [facility], [place], [address], 10/08/2020 13:10:33 10/08/19 21 10/08/2020 urina lysis , compl ete casts FIELD PRODUCER Not Available [facility] ([facility]) [address], [place], [address], 10/08/2020 13:10:33 10/08/19 21 10/08/2020 urina lysis , compl ete cast type FIELD PRODUCER Not Available [facility] ([facility]) [address] [facility], [place], [address], 10/08/2020 13:10:33 10/08/19 21 10/08/2020 urina lysis , compl ete crystals FIELD PRODUCER Not Available [facility] ([facility]) [address], [place], [address], 10/08/2020 13:10:33 10/08/19 21 10/08/2020 urina lysis , compl ete crystal type FIELD PRODUCER Not Available [facility] ([facility]) [address] [facility], [place], [address], 10/08/2020 13:10:33 10/08/19 21 10/08/2020 urina lysis , compl ete mucus threads FIELD PRODUCER Not Available [facility] ([facility]) [address] [place], [address], 10/08/2020 13:10:33 10/08/19 21 10/08/2020 urina lysis , compl ete bacteria None seen none seen/f ew Not Available [facility] ([facility]) [address] [place], [address], 10/08/2020 13:10:33 10/08/19 21 10/08/2020 urina lysis , compl ete yeast FIELD PRODUCER Not Available [facility] ([facility]) [address] [place], [address], 10/08/2020 13:10:33 10/08/19 21 10/08/2020 urina lysis , compl ete trichomonas FIELD PRODUCER Not Available [facility] ([facility]) [address] [facility], [place], [address], 10/08/2020 13:10:33 10/08/19 21 10/08/2020 urina lysis , compl ete comment FIELD PRODUCER Not Available [facility] ([facility]) [address] [place], [address], 10/08/2020 13:10:33 10/08/19 21 10/08/2020 PSA, serum or plasm a prostate specific Ag, serum 1.4 NG/mL 0.0-4. 0 Raza ECLIA metho dolog y. Accor ding to the Ameri can [employer] g[employer] iatio n, Serum PSA shoul d decre ase and remai n at undet ectab le level s after radic al prost atect nik. The AUA defin es bioch emica l recur rence as an initi al PSA value 0.2 ng/mL or great er follo wed by a subse quent confi rmato ry PSA value 0.2 ng/mL or great er. Value s obtai otis with diffe rent assay metho ds or kits canno t be used inter renee eaopal . Resul ts canno t be inter prete d as absol ajay evide nce of the prese nce or absen ce of nicole asif se. Not Available [facility] ([facility]) [address] [facility], [place], [address], 10/08/2020 13:10:34 10/08/19 21 10/08/2020 PSA, serum or plasm a pdf . Not Available [facility] ([facility]) [address] [facility], [place], [address], 10/08/2020 13:10:34 10/08/19 21 10/08/2020 HbA1c (hemo globi n A1c), blood hemoglobin A1C 6.1 % 4.8-5. 6 above high normal Predi abete s: 5.7 - 6.4 Diabe pearl: >6.4 Glyce trae contr ol for adult s with diabe pearl: <7.0 Not Available [facility] ([facility]) [address] [facility], [place], [address], 10/08/2020 13:10:35 10/01/19 25 09/30/2024 COLOG UARD cologuard result reportable Sample Could Not Be Proces sed n/a Addit ion of stabi lizat ion buffe r to the speci men could not be verif ied. The patie nt will be conta cted to initi ate a new sampl e colle ction . Not Available [facility] (Cologuard Orders Only) [address], [place], [address], 10/01/2024 22:08:46 08/10/19 21 08/10/2020 XR, chest No observ ation record ed. [facility] [address], [place], [address], 08/11/2020 11:14:54 08/10/19 21 08/10/2020 CT, brain , w/o contr ast No observ ation record ed. [facility] [address], [place], [address], 08/11/2020 11:15:10 Result Notes None recorded. Problems Name Problem SNOMED Code Status Onset Date Resolution Date Notes Provider Name and Address Organization Details Recorded Time Essential hypertension 45828928 Active 2023 Apollo Roland MA null, [place] - [facility] 4 15:35:25 Screening for malignant neoplasm of prostate Active 2023 Apollo Roland [place], [place] [facility] 4 15:35:26 Hyperlipidemia 81132220 Active 2023 Dar Yan MD Attn: Viki stacy,[address] [facility], [place], [address], [place] [facility] 4 14:59:02 Gastroesophage al reflux disease without esophagitis 169402336 Active 2023 Dar Yan MD Attn: Viki stacy,[address] [facility], [place], [address], [place] [facility] 4 14:59:16 Fall Active 2024 Dar Yan MD Attn: Viki stacy,[address] [facility], [place], [address], [place] [facility] 5 11:59:50 Fatigue 26891589 Active 2024 Dar Yan MD Attn: Viki stacy,[address] [facility], [place], [address], [place] [facility] 5 11:59:52 Schizophrenia 06138106 Active 2024 Aretha Jaime LPN null, [place] [facility] 5 14:29:23 Parkinson's disease 14233113 Active 2024 Aretha Jaiem LPN [place], [place] [facility] 5 14:32:12 Problem Notes None recorded. Procedures Surgical History None recorded. Imaging Results Imaging Date Name Status LastModified by Organiz ation Details LastModified Time 08/10/2020 XR, chest completed [facility] [address], [place], [address], 08/11/2020 11:14:54 08/10/2020 CT, brain, w/o contrast completed [facility] [address], [place], [address], 08/11/2020 11:15:10 Procedure Notes None recorded. Medical Equipment None Reported. Allergies No known drug allergies Medications Name Sig Start Date Stop Date Status Note LastModified by Organization Details LastModified Time haloperido l 5 mg tablet TAKE 1 TABLET BY MOUTH EVERY DAY active Not Available Not Available No t Available Acetaminop hen Extra Strength 500 mg tablet Take 2 tablets every 6 hours by oral route. active pt says he only takes it as needed Not Available Not Available Not Available clindamyci n HCl 300 mg capsule 03/03 completed Not Available Not Available Not Available amlodipine 5 mg tablet TAKE 1 TABLET BY MOUTH EVERY DAY 2024 active Not Available Not Available Not Avai lable lamotrigin e 25 mg tablet TAKE 1 TABLET BY MOUTH EVERY DAY FOR 2 WEEKS. INCREASE TO 2 TABLETS EVERY DAY THEREAFT ER active Not Available Not Available No t Available lithium carbonate 300 mg capsule takes 2 capsules twicw daily active Not Available Not Available No t Available gemfibrozi l 600 mg tablet TAKE 1 TABLET BY MOUTH TWICE DAILY 2024 active Not Available Not Available Not Avai lable benztropin e 2 mg tablet TAKE 1 TABLET BY MOUTH EVERY DAY active Not Available Not Available No t Available omeprazole 20 mg capsule,de layed release TAKE 1 CAPSULE BY MOUTH EVERY DAY 2024 active Not Available Not Available Not Avai lable lithium carbonate 300 mg tablet TAKE 1 TABLET IN AM AND PM X 3 DAYS, THEN GO TO 1 TABLET IN AM AND 2 TABLETS IN PM active Not Available Not Available No t Available atenolol 50 mg tablet TAKE 1 TABLET BY MOUTH EVERY DAY 08/14 completed Not Available Not Available Not Available Vitamin D2 active Not Available Not Av ailable Not Available Austedo XR 6 mg tablet,ext ended release TAKE 1 TABLET BY MOUTH EVERY OTHER DAY active Not Available Not Available No t Available Vitals Date Recorded Body height Body mass index (BMI) Body weight Heart rate Oxygen saturation Oxygen saturation in Arterial blood by Pulse oximetry Systolic blood pressure Diastolic blood pressure Provider Name and Address Organization Details Last Updated DateTime 4 170.18 cm 31.6 kg/m2 44725.9 5 g 69 /min 95 % 95 % 132 mm[Hg] 78 mm[Hg] Unique Sorenson MA [place] - [facility] 4 14:19:20 Social History Question Answer Notes LastModified by Organizat ion Details LastModified Time Tobacco Smoking Status Former Smoker quit in 1994 ERROL Sor[place], [place] - [facility] 03/03/2020 16:01:33 What Is Your Level Of Alcohol Consumption? None Information not available 03/03/2020 What Is Your Level Of Caffeine Consumption? Moderate Information not available 03/03/2020 In The 14 Days Before Symptom Onset, Have You Had Close Contact With A Laboratory-confir med COVID-19 While That Case Was Ill? No Information not available 10/02/2020 In The 14 Days Before Symptom Onset, Have You Had Close Contact With A Person Who Is Under Investigation For COVID-19 While That Person Was Ill? No Information not available 10/02/2020 Have You Been To An Area Known To Be High Risk For COVID-19? No Information not available 10/02/2020 Are You Currently Employed? No Information not available 10/02/2020 What Type Of Diet Are You Following? REGULAR Information not available 08/24/2020 Which Illicit Or Recreational Drugs Have You Used? None Information not available 08/24/2020 Marital Status Single Informat ion not available 03/03/2020 What Was The Date Of Your Most Recent Tobacco Screening? 04/01/2024 Information not available 04/01/2024 How Much Tobacco Do You Smoke? No Information not available 03/03/2020 General Stress Level Low Information not available 03/03/2020 On What Date Was Tobacco Cessation Counseling Provided? 10/02/2020 Information not available 10/02/2020 How Many Years Have You Smoked Tobacco? 25 Information not available 04/01/2024 Sex: Male Functional Status None recorded. Mental Status None recorded. Family History Relationship Description Onset Age of this Age Resolved Age Notes LastModified by Organization Details LastModified Time Mother Dementia [email or web address] Not avail able 03/03/2020 16:00:15 Medical History Condition Response Coronary Artery Disease N Other N High Blood Pressure Y Atrial Fibrillation N Thyroid Problems N Kidney or Bladder Problems N GI Problems N Depression N COPD N Blood Clots N Have you had a mammogram in the last yea r? N Skin Problems Y Anemia N Heart Attack ([place]) N Anxiety Disorder N Diabetes N Muscle, Joint, or Bone Problems N Seizures/Epilepsy N Have you had a colonoscopy in the last 1 0 years? Y Acid Reflux (GERD) Y Cancer N Stroke N Asthma N Allergies N Have you had a PSA blood test in the las t year? N High Cholesterol Y Hepatitis N Liver Disease N Schizophrenia Y Headaches N Heart Failure N Osteoporosis N Past Encounters Encounter ID Performer Location Encounter Start Date Encounter Closed Date Diagnosis/Indication Diagnosis SNOMED-CT Code Diagnosis ICD10 Code Diagnosis Note [id number] VERÓNICA Garcia [facility] [address] [place] [address] 03/03/2020 15:51:42 03/03/2020 17:20:03 Essential hypertension 58226583 I10 Chronic schizophrenia 83 838422 F20.89 Obstructiv e sleep apnea syndrome 87109537 G47.33 [id number] Zoltan Houston PA-C [facility] [address] [place] [address] 08/24/2020 09:40:26 08/25/2020 14:25:00 Essential hypertension 04240819 I10 Obstructiv e sleep apnea syndrome 21773912 G47.33 Hyperlipidemia 18495948 E78.2 Schizophrenia 21166588 F 20.89 [id number] VERÓNICA Garcia [facility] [address] [place] [address] 10/02/2020 14:04:41 10/05/2020 15:15:35 Increased frequency of urination 778219977 R35.0 [id number] Rasheeda Clemente MA [facility] [address] [place] [address] 10/07/2020 10:33:42 10/19/2020 21:14:54 Increased frequency of urination 461658710 R35.0 [id number] Dar Yan MD [facility] [place] [address] [place] [address] 04/01/2024 13:39:53 04/01/2024 15:41:37 Essential hypertension 36526954 I10 Screening for malignant neoplasm of prostate 628840626 Z12.5 Hyperlipidemia 27333957 E78.5 Gastroesop hageal reflux disease without esophagitis 688042607 K21.9 [id number] Dar Yan MD [facility] [place] [address] [place] [address] 07/29/2024 10:25:24 07/29/2024 12:22:18 Essential hypertension [id number] I10 Gastroesop hageal reflux disease without esophagitis [id number] K21.9 Hyperlipidemia 78950395 E78.5 Fatigue [id number] R53.83 Fall [id number] W19.XXXA Screening for malignant neoplasm of colon [id number] Z12.11 Health Concerns Section Related Observation LastModified by Organization Detai ls LastModified Time None Recorded Concern Status LastModified by Organization Details LastModified Time None Recorded Advance Directives Directive None Recorded Payers Encounter Date Sequence Insurance Name Policy Number Policy Mejia Covered Member ID Mejia Member ID Guarantor Name 08/24/2020 1 [place] Junior Ramires [id number] Junior Ramires 08/24/2020 2 [place] MEDICARE REPLACEMENT PRIMARY) Junior Ramires [id number] Junior Ramires 10/02/2020 [place] Junior Ramires [id number] Junior Ramires 10/02/2020 2 [place]IC[place] REPLACEMENT [place]) Junior Ramires [id number] Junior Ramires 10/07/2020 1 [place] Junior Ramires [id number] Junior Ramires 10/07/2020 2 [place] REPLACEMENT [place]) Junior Ramires [id number] Junior Ramires 04/01/2024 1 [place] Junior Ramires [id number] Junior Ramires 04/01/2024 2 [place]IC[place] REPLACEMENT PR[place]) Junior Ramires [id number] Junior Ramires 07/29/2024 1 [place] Junior Ramires [id number] Junior Ramires 07/29/2024 2 [place]IC[place] REPLACEMENT [place]) Junior Ramires [id number] Junior Ramires Notes Date Note Type Note Provider Name and Address Organization Details Recorded Time 08/24/2020 text/html hospital f/u for lithium toxicity. 08/10-08/13. Hospital took him completely off lithium to see how he'll do without it. Sister is present during the appointment and isn't sure why he got toxic since he's been on it for 20 years. He hasn't been having the quarterly checks.. patient doesn't know why his psych doctor didn't do more often checks.. [facility]. Last level checked was last October. Feeling pretty good today being off lithium for 10 days..slightly restless and more active. sleeps about 6 hours at night. Still taking haldol and benztropine daily.. interested in adding a SSRI. psych doc said he could go back on lithium and monitor or stay off. he was primarily taking it for thomas. He is on the list to move into a supportive living environment..[facility] [place]. Needs us to fill out form.. but first and second diagnoses can't be schizophrenia. could use HLD or sleep apnea. sister will send form over. Zoltan Houston PA-C Attn: Accounting,[address] [facility], [place], [address], [place] [facility] 08/24/2020 11:53:14 10/02/2020 text/html Frequent urinati on. Says he's been like this since starting haldol which was 20 years ago. Woman on the phone thinks it's getting worse.. he needs to urinate as soon as he gets in the car. Woman also thinks it could be anxiety. Patient has trouble explaining what is going on. Drinks a lot of water/fluids. Switched back to lithium today (off lamotrlgine) and is feeling better. Follows with Robert in [facility]. They have not discussed the urinating issues. Denies painful urination, blood in urine, odorous urine, trouble emptying bladder, and cloudy appearance. Endorses hesitancy, dribbling, and frequency. Frequency does not get worse at night.. consistent throughout the day. Zoltan Houston PA-C Attn: Accounting, [address] [facility], [place], [address], [facility] [place] 10/02/2020 15:29:04 04/01/2024 text/html 68-year-old with hypertension hyperlipidemia GERD and manic schizophrenia who has been stable meds as listed questionable allergy to ibuprofen surgeries appendectomy in upper back lipoma denies smoking or drinking he is on disability says he is up-to-date on flu and COVID shots not sure about Cologuard or colonoscopy he does see Psychiatry Dar Yan MD Attn: Accounting, [address] [facility], [place], [address], [facility] - [facility] 04/21/2024 15:00:16 07/29/2024 text/html couple of falls without injury 1 at a [employer] other 1 at a [employer] [place] [employer]. He was not dizzy upon standing no chest pain denied have any bowel or bladder incontinence. Hypertension he denies any headache or dizziness. Hyperlipidemia his diet could be better GERD no nausea no vomiting prediabetic could do better with watching sweets Dar Yan MD Attn: Accounting, [address] [facility], [place], [address], [facility] 08/04/2024 15:01:25
== END 2024-10-28 08:58 | disposition home or self-care (01) ==
PROVIDERS: PCP Internal Medicine; Visit Provider Internal Medicine
DX: E21.5 Disorder of parathyroid gland, unspecified (principal)
CPT/HCPCS: 78071; A9500

== ENCOUNTER 2025-01-11 10:29 | Emergency (ER) | payer MEDICARE, MEDICAID, SELFPAY ==
--- NOTE | ~2025-01-11 | CT_ITS ---
EXAMINATION: CT brain wo con DATE: 01/11/2025 12:57 INDICATION: Altered mental status TECHNIQUE: Computed tomography (CT) of the head was performed without intravenous contrast. Sagittal and coronal reconstructions were performed. The mA was adjusted according to patient size. Iterative reconstruction technique was employed. The dose-length product was 681.00 mGy-cm. COMPARISON: head CT dated 08/10/2020 FINDINGS: No acute intracranial hemorrhage, acute infarction or abnormal extra axial fluid collection. There is mild scattered white matter hypoattenuation consistent with chronic small vessel ischemic disease. S ymmetric prominence of the sulci consistent with mild age-appropriate diffuse cerebral volume loss. V entricles are normal and symmetric. No mass/mass effect. The callosal thickening in the left maxillar y sinus. The orbits and mastoid air cells are normal. IMPRESSION: 1. No acute intracranial process. 2. Chronic age-related changes including mild diffuse volume loss and mild scattered white matter hyp oattenuation consistent with chronic small vessel ischemic disease. Reviewed, dictated and finalized at location A. IMPRESSION: 1. No acute intracranial process. 2. Chronic age-related changes including mild diffuse volume loss and mild scat tered white matter hypoattenuation consistent with chronic small vessel ischemi c disease.
--- NOTE | ~2025-01-11 | XR_ITS ---
EXAMINATION: XR chest 1V portable DATE: 01/11/2025 12:49 INDICATION: Altered mental status TECHNIQUE: frontal view of the chest was obtained. COMPARISON: Chest radiograph dated 08/10/2020 FINDINGS: Mild linear discoid atelectasis at the lateral left lower lung zone. No other airspace opacities, pul monary edema, pleural effusion or pneumothorax. The cardiomediastinal silhouette is normal. IMPRESSION: 1. Mild discoid atelectasis at the left lung base. No other acute cardiopulmonary disease. Reviewed, dictated and finalized at location A. IMPRESSION: 1. Mild discoid atelectasis at the left lung base. No other acute cardiopulmona ry disease.
[2025-01-11 10:35] VITALS: BP 137/72; PULSE 81; RESP 19; TEMP 36.6; O2SAT 99
[2025-01-11 11:25] VITALS: BP 137/74; PULSE 80; RESP 20; TEMP 36.5; O2SAT 100
--- NOTE | 2025-01-11 12:18 | ECG_ITS ---
Test Date: 2025-01-11 12:38:30 Measurements Intervals [place] Rate: 82 P: 57 WI: 205 QRS: -25 QRSD: 125 T: 61 QT: 404 QTc: 472 Interpretive Statements SINUS RHYTHM VOLTAGE CRITERIA FOR LVH MINIMAL Q WAVES- HIGH LATERAL LEADS BORDERLINE ECG No previous ECG available for comparison Electronically Signed On 01-11-2025 13:42:29 CDT by Lobito Alcala D.O.
--- NOTE | 2025-01-11 12:18 | ED.GENADULT ---
HPI - General Adult General Chief complaint: Unspecified Stated complaint: rash, abnormal behavior, on [place] Time Seen by Provider: 01/11/25 11:18 Source: patient and family (Sister) Mode of arrival: ambulatory History of Present Illness HPI narrative: Patient presents with his sister with whom he lives. She is concerned because she has noted some abnormal behavior and is concern for possible lithium toxicity as he had been acting similarly when this occurred previously. He takes lithium for schizophrenia. No recent dose changes although she does report that he had not been letting her assist with putting his medications in a pill box so it is unknown if he has been taking appropriate dosing. He is also on a total for psychiatric medications including a very low dose of Haldol as stated by patient. She notes that he was confused last night and he does report that he was having difficulty sleeping and talks about grabbing car keys and then putting them back. She reports that he has had some behavior changes but in general has been more forgetful with some memory issues which have not been acute. He has been drinking a lot liquid and soda. They also note that he has had a speckled rash along his bilateral lower extremities. He had been applying a powder to them and reports that this helped he is not experiencing any itching or burning. Patient reports a history of sleep apnea. Related Data Home Medications ?Medication ?Instructions ?Recorded ?Confirmed ?Last Taken ?Type benztropine 2 mg tablet 2 mg PO DAILY 08/10/20 08/10/20 Unknown History gemfibrozil 600 mg tablet 600 mg PO BID 08/10/20 08/10/20 Unknown History haloperidol 5 mg tablet 5 mg PO DAILY 08/10/20 08/10/20 Unknown History lithium carbonate 300 mg capsule 600 mg PO BID 08/10/20 08/10/20 Unknown History omeprazole 20 mg capsule,delayed 20 mg PO DAILY 08/10/20 08/10/20 Unknown History release Allergies Allergy/AdvReac Type Severity Reaction Status Date / Time No Known Allergies Allergy Verified 08/10/20 16:55 [facility] Past Medical History Medical History Combined pyramidal-extrapyramidal syndrome Hyperlipidemia Hypertension Melanie Schizophrenia Surgical History Surgical History History of appendectomy Family History Family History Father due to motor vehicle traffic accident Mother due to natural causes Social History Social History Social History: the patient is single and has never been . the patient stated that he used to smoke in 1968 for a brief period of time then quit. He stated that he had a significant other for a long period time but no longer has her. He does occasionally have it makes drink. He said that he lives with family (sister) and he has no children. He is a full code and does not have a durable power environmental attorney for healthcare. the patient stated that he use marijuana in the 60s. Smoking status: Former smoker Alcohol intake: never Substance use: never Substance use type: does not use Living arrangements: with family Additional living arrangements comments: Sister Gender identity (if verbalized by the patient): Male Sexual Orientation (if Verbalized by the Patient): Straight or Heterosexual Spiritual care concerns: No Exam Narrative: GENERAL: Well-appearing, well-nourished, and in no acute distress. HEAD: Normocephalic, atraumatic. EYES: Non injected, non icteric ENT: Nares clear, no rhinorrhea or epistaxis. Gross auditory acuity intact. NECK: Supple. No meningismus. CHEST: Speaking in full sentences. No respiratory distress. HEART: Regular rate and rhythm. ABDOMEN: Soft, nondistended. EXTREMITIES: Normal range of motion. No lower extremity edema. SKIN: Warm, dry. Scattered erythematous lesions along bilateral lower extremities. No vesicles/blisters. Not weeping. No purpura. NEURO: No focal deficits. Alert and oriented. Answering questions. Following commands. Normal speech without aphasia or dysarthria. PSYCH: Congruent mood and affect. Course Vital Signs Vital signs: Vital Signs Temperature 97.8 F 01/11/25 10:35 Pulse Rate 81 01/11/25 10:35 Respiratory Rate 19 01/11/25 10:35 Blood Pressure 137/72 01/11/25 10:35 Pulse Oximetry 99 01/11/25 10:35 Oxygen Delivery Room Air 01/11/25 10:35 Temperature 97.7 F 01/11/25 11:25 Pulse Rate 76 01/11/25 13:09 Respiratory Rate 20 01/11/25 13:09 Blood Pressure 142/87 H 01/11/25 13:09 Pulse Oximetry 98 01/11/25 13:09 Oxygen Delivery Room Air 01/11/25 11:25 Medical Decision Making MDM Narrative Medical decision making narrative: Patient and his sister presents concern for possible lithium overdose/toxicity as he has been having some abnormal behaviors recently and had acted similarly once previously when that occurred. In the emergency department they are afebrile with vital signs within normal limits. Calcium corrects to normal (10.2) for albumin of 4.4. [place] level within normal limits. In general, patient's workup has not identified the cause of his symptoms. He was reassessed at 2:05 p.m. and I chatted at bedside with patient and his sister. They were reassured by his workup. She notes that their mother had dementia and there has been some consideration of declining patient's overall executive function. This has been addressed with the patient's psychiatrist and primary care provider previously and they will continue to explore this in the outpatient setting. Of note, he has an upcoming telehealth appointment with his psychiatrist in 3 weeks. Reasonable to discharge at this time has patient's sister does not have concern about his mentation or safety. She will help him with administering/keeping track of his medications over the next few weeks and he is amenable with this. Both feel comfortable with the plan. Differential Diagnosis Differential Diagnosis: [place] toxicity/overdose, urinary tract infection, pneumonia, intracranial hemorrhage, other toxicities/drug use, hyponatremia; endocrine abnormalities; TTP Vital Signs Vital Signs: Vital Signs Temperature 97.8 F 01/11/25 10:35 Pulse Rate 81 01/11/25 10:35 Respiratory Rate 19 01/11/25 10:35 Blood Pressure 137/72 01/11/25 10:35 Pulse Oximetry 99 01/11/25 10:35 Oxygen Delivery Room Air 01/11/25 10:35 Temperature 97.7 F 01/11/25 11:25 Pulse Rate 76 01/11/25 13:09 Respiratory Rate 20 01/11/25 13:09 Blood Pressure 142/87 H 01/11/25 13:09 Pulse Oximetry 98 01/11/25 13:09 Oxygen Delivery Room Air 01/11/25 11:25 Lab Data Lab results reviewed: Yes I reviewed the patient's lab results. Lab results narrative: Reviewed and generally without marked abnormalities 01/11/25 12:35 01/11/25 12:35 Labs: Lab Results 01/11/25 01/11/25 01/11/25 Range/Units 12:35 12:44 13:00 WBC 7.1 (4.5-10.0) K/mm3 RBC 4.81 (4.6-6.20) M/mm3 Hgb 14.8 (14.0-18.0) g/dL Hct 45.9 (42.0-52.0) % MCV 95.4 (80-100) fl MCH 30.8 (26-34) pg MCHC 32.2 (32-36) g/dl RDW 13.3 (11.5-14.5) % Plt Count 292 (150-375) k/mm3 MPV 9.5 (7.4-10.4) fl Immature Gran % (Auto) 1.0 H (0-0.5) % Neut % (Auto) 61.5 (45.5-73.1) % Lymph % (Auto) 25.7 (18.3-44.2) % [place] % (Auto) 7.9 (2.6-8.5) % Eos % (Auto) 3.2 (0-4.4) % Baso % (Auto) 0.7 (0.2-1.2) % Lymph # (Auto) 1.82 (0.9-3.2) K/mm3 [place] # (Auto) 0.6 (0.1-0.6) K/mm3 Eos # (Auto) 0.2 (0-0.3) K/mm3 Baso # (Auto) 0.1 (0.0-0.1) K/mm3 Abs Immat Gran (auto) 0.07 H (0.00-0.031) K/mm3 Absolute Neuts (auto) 4.4 (1.3-6.7) K/mm3 Absolute Nucleated RBC 0.000 (0.0-0.012) K/mm3 Nucleated RBC % 0.0 (0.0-0.2) % Sodium 139 (137-145) mmol/L Potassium 4.3 (3.4-5.0) mmol/L Chloride 105 (98-107) mmol/L Carbon Dioxide 26 (22-30) mmol/L Anion Gap 8 (4-12) mmol/L BUN 16 (9-20) mg/dL Creatinine 1.06 (0.7-1.3) mg/dL Estim Creat Clear Calc 65 ml/min Estimated GFR > 60 (59 - ) Glucose 131 H (65-110) mg/dL POC Capillary Glucose 149 H (65-105) mg/dl Calcium 10.5 H (8.4-10.2) mg/dL Total Bilirubin 0.4 (0.2-1.3) mg/dL AST 40 (17-59) U/L ALT 34 (6-50) U/L Alkaline Phosphatase 117 (38-126) U/L Ammonia < 9 L (9-30) umol/L Total Creatine Kinase 62 (55-170) U/L Total Protein 7.4 (6.3-8.2) g/dL Albumin 4.4 (3.5-5.1) g/dL TSH 1.490 (0.465-4.680) uIU/mL Urine Color Yellow (Yellow) Urine Appearance Clear (Clear) Urine pH 6.0 (5.0-9.0) Ur Specific [place] 1.005 (1.001-1.035) Urine Protein Negative (Negative) mg/dL Urine Glucose (UA) Negative (Negative) mg/dL Urine Ketones Negative (Negative) mg/dL Ur Blood (Man) Negative (Negative) Urine Nitrate Negative (Negative) Urine Bilirubin Negative (Negative) Urine Urobilinogen 0.2 (<2.0) mg/dL Leukocyte Esterase Rfl Negative (Negative) TANISHA/UL Salicylates < 1.0 L (2-20) mg/dL Urine Opiates Screen Negative (Negative) Urine Methadone Screen Negative (Negative) Acetaminophen < 10 L (10-30) ug/mL Ur Barbiturates Screen Negative (Negative) Ur Phencyclidine Scrn Negative (Negative) Ur Amphetamine Screen Negative (Negative) U Benzodiazepines Scrn Negative (Negative) [place] 1.0 (0.6-1.2) mmol/L Urine Cocaine Screen Negative (Negative) U Cannabinoids Screen Negative (Negative) Ethyl Alcohol < 10 (<10) mg/dL Imaging Data Radiologist's impression: Impressions Head CT 01/11/25 13:03 IMPRESSION: 1. No acute intracranial process. 2. Chronic age-related changes including mild diffuse volume loss and mild scattered white matter hypoattenuation consistent with chronic small vessel ischemic disease. Chest X-Ray 01/11/25 13:07 IMPRESSION: 1. Mild discoid atelectasis at the left lung base. No other acute cardiopulmonary disease. ECG Data EKG #1: Attestation: I personally reviewed and interpreted this ECG as follows: ECG completion date: 01/11/25 ECG completion time: 12:38 Interpretation: Normal sinus rhythm at a rate of 82 beats per minute. NC interval 205, prolonged in consistent with a first-degree AV block. QRS 125. QT/QTC 404/442. Good R-wave progression across the precordial leads. No T-wave inversions. Discharge Plan Discharge Clinical Impression: Altered mental status, Discoid atelectasis, [place] use Patient Disposition: Home Condition: Stable Instructions: Antibiotic Form, Altered Mental Status (ED), Atelectasis (ED) Additional Instructions: As we discussed, no clear cause of your symptoms. Your labs were reassuring including a normal lithium level. You also had a normal CT scan and urine and EKG. Your chest x-ray did show some nonspecific discoid atelectasis, stable. Keep your upcoming appointment with your psychiatrist and follow-up with your primary care physician as well. Continue taking your medications as prescribed. Return to the emergency department any new, worsening, or unmanaged symptoms. Patient Language: Montserratian Prescriptions: No Action haloperidol 5 mg tablet 5 mg PO DAILY lithium carbonate 300 mg capsule 600 mg PO BID gemfibrozil 600 mg tablet 600 mg PO BID benztropine 2 mg tablet 2 mg PO DAILY omeprazole 20 mg capsule,delayed release(DR/EC) 20 mg PO DAILY amlodipine [Norvasc] 5 mg Tablet 5 mg PO QAM Qty: 30 0RF Follow-up/Referrals: Yuriy,MD Dar [Primary Care Provider] - Time of Disposition: 14:11
[2025-01-11 12:41] LABS: Basophils Absolute Auto 0.1 K/mm3 (0.0-0.1); Basophils Percent Auto 0.7 % (0.2-1.2); Eosinophils Absolute Auto 0.2 K/mm3 (0-0.3); Eosinophils Percent Auto 3.2 % (0-4.4); Hematocrit 45.9 % (42.0-52.0); Hemoglobin 14.8 g/dL (14.0-18.0); Immature Granulocyte Absolute 0.07 K/mm3 (0.00-0.031); Lymphocytes Absolute Auto 1.82 K/mm3 (0.9-3.2); Lymphocytes Percent Auto 25.7 % (18.3-44.2); Mean Corpuscular HGB Conc 32.2 g/dl (32-36); Mean Corpuscular Hemoglobin 30.8 pg (26-34); Mean Corpuscular Volume 95.4 fl (80-100); Mean Platelet Volume 9.5 fl (7.4-10.4); Monocytes Absolute Auto 0.6 K/mm3 (0.1-0.6); Monocytes Percent Auto 7.9 % (2.6-8.5); Neutrophils Absolute Auto 4.4 K/mm3 (1.3-6.7); Neutrophils Percent Auto 61.5 % (45.5-73.1); Platelet Count Result 292 k/mm3 (150-375); Red Blood Count 4.81 M/mm3 (4.6-6.20); Red Cell Distribution Width 13.3 % (11.5-14.5); White Blood Count 7.1 K/mm3 (4.5-10.0)
[2025-01-11 12:50] LABS: Acetaminophen < 10 ug/mL (10-30); Alanine Aminotransferase 34 U/L (6-50); Albumin Level 4.4 g/dL (3.5-5.1); Alkaline Phosphatase 117 U/L (38-126); Ammonia < 9 umol/L (9-30); Anion Gap 8 mmol/L (4-12); Aspartate Amino Transferase 40 U/L (17-59); Bilirubin,Total 0.4 mg/dL (0.2-1.3); Blood Urea Nitrogen 16 mg/dL (9-20); Calcium 10.5 mg/dL (8.4-10.2); Carbon Dioxide 26 mmol/L (22-30); Chloride 105 mmol/L (98-107); Creatine Kinase 62 U/L (55-170); Estimated CRCL calculation 65 ml/min; Estimated Glomerular Filt Rate > 60; Ethanol < 10 mg/dL (<10); Glucose 131 mg/dL (65-110); Potassium 4.3 mmol/L (3.4-5.0); Salicylate < 1.0 mg/dL (2-20); Sodium 139 mmol/L (137-145); Total Protein 7.4 g/dL (6.3-8.2)
[2025-01-11 12:53] LABS: Add Urine Microscopic? NO; Appearance Urine Clear (Clear); Bilirubin Urine Negative (Negative); Blood Urine Negative (Negative); Color Urine Yellow (Yellow); Glucose Urine UA Negative (Negative); Ketones Urine Negative (Negative); Leukocyte Esterase Ur Negative LEU/UL (Negative); Nitrate Urine Negative (Negative); Protein Urine Negative (Negative); Specific Grav Ur 1.005 (1.001-1.035); Urobilinogen Urine 0.2 mg/dL (<2.0)
--- NOTE | 2025-01-11 12:54 | PC.NURSE ---
Pt to radiology at this time
[2025-01-11 13:02] LABS: Glucose Point of Care 149 mg/dl (65-105)
[2025-01-11 13:09] VITALS: BP 142/87; PULSE 76; RESP 20; O2SAT 98
[2025-01-11 13:35] LABS: Amphetamine Screen Urine Negative (Negative); Barbiturate Screen Urine Negative (Negative); Benzodiazepines Screen Urine Negative (Negative); Cannabinoid Screen Urine Negative (Negative); Cocaine Screen Urine Negative (Negative); Methadone Screen Urine Negative (Negative); Opiate Screen Urine Negative (Negative); Phencyclidine Screen Urine Negative (Negative)
== END 2025-01-11 14:56 | disposition home or self-care (01) ==
PROVIDERS: Emergency Provider Student in an Organized Health Care Education/Training Program; PCP Internal Medicine
DX: R41.82 Altered mental status, unspecified (principal); J98.11 Atelectasis; E78.5 Hyperlipidemia, unspecified; I10 Essential (primary) hypertension; G25.9 Extrapyramidal and movement disorder, unspecified; F20.9 Schizophrenia, unspecified; Z87.891 Personal history of nicotine dependence; Z79.899 Other long term (current) drug therapy; R94.31 Abnormal electrocardiogram [ECG] [EKG]
CPT/HCPCS: 36415; 70450; 71045; 80053; 80143; 80178; 80179; 80307; 81003; 82077; 82140; 82550; 82948; 84443; 85025; 93005; 99284